=== PATIENT | female | born 1985 | race Caucasian/White ===

== ENCOUNTER 2020-11-07 20:14 | Emergency (ER) | payer BC ==
[~2020-11-07] VITALS: Ht 172.7 cm; Wt 53.5 kg
--- NOTE | 2020-11-07 20:39 | NUR ---
PT AMBULATED TO ER WITH C/O LEFT INDEX FINGER LACERATION. A/O X4, NO SOB OR LABORED BREATHING, AFEBRILE.
--- NOTE | 2020-11-07 20:41 | NUR ---
DR. TAMEZ AT BEDSIDE, MSE IN PROGRESS.
[2020-11-07] MEDS ORDERED: BACITRACIN ZINC OINT 15 GM TUBE ONE (21:22)
--- NOTE | 2020-11-07 21:40 | NUR ---
Patient discharged to home in stable condition. Denies any pain/discomfort upon discharge. Left index finger sutured by Dr. Navas and covered in clean dry dressing. Written and verbal after care instructions given. Patient verbalizes understanding of instructions. Stressed follow up or return to ER for worsening s/s. Steady gait. Picked up by .
[2020-11-07 21:41] VITALS: BP 137/75
[2020-11-07] MEDS ORDERED: BACITRACIN ZINC OINT 15 GM TUBE TOP ONE (21:45)
[2020-11-07] MEDS ORDERED: LIDOCAINE HCL 2% 20 ML VIAL IJ ONE (21:45)
== END 2020-11-07 21:40 | disposition home or self-care (01) ==
LOC: ER 20:23
DX: S61.211A Laceration without foreign body of left index finger without damage to nail, initial encounter (principal); W26.0XXA Contact with knife, initial encounter; Y93.G9 Activity, other involving cooking and grilling; Y92.89 Other specified places as the place of occurrence of the external cause; Z88.0 Allergy status to penicillin; Z88.2 Allergy status to sulfonamides
CPT/HCPCS: 12001; 99282; J3490; A4663